=== PATIENT | female | born 1980 | race Caucasian/White ===

== ENCOUNTER 2019-04-20 22:00 | Emergency (ER) | payer SELFPAY ==
[2019-04-20] MEDS ORDERED: ONDANSETRON INJ 4 MG/2 ML VIAL IV ONE (22:14)
[2019-04-20] MEDS ORDERED: MORPHINE SULFATE INJ 10 MG/ML VIAL IV ONE ×2 (22:14→23:56)
[2019-04-20] MEDS ORDERED: SODIUM CHLORIDE 0.9% 1000ML 250 ML IVS ONE (22:39)
--- NOTE | 2019-04-20 23:41 | RAD ---
EXAM: XR Chest, 1 View CLINICAL HISTORY: The patient is 38 years old and is Female; chest pain TECHNIQUE: Frontal view of the chest. COMPARISON: No relevant prior studies available. FINDINGS: LUNGS: Unremarkable. No consolidation. PLEURAL SPACE: Unremarkable. No pneumothorax. HEART: Unremarkable. No cardiomegaly. MEDIASTINUM: Unremarkable. BONES/JOINTS: Unremarkable. IMPRESSION: No acute cardiopulmonary process. Electronically signed by: Emily Pinedo MD 04/20/2019 11:39 PM CDT
--- NOTE | 2019-04-20 23:46 | CT ---
EXAM: CT Angiography Chest With Intravenous Contrast CLINICAL HISTORY: The patient is 38 years old and is Female; chest pain TECHNIQUE: Axial computed tomographic angiography images of the chest with intravenous contrast using pulmonary embolism protocol. Sagittal and coronal reformatted images were created and reviewed. This CT exam was performed using one or more of the following dose reduction techniques: automated exposure control, adjustment of the mA and/or kV according to patient size, and/or use of iterative reconstruction technique. MIP reconstructed images were created and reviewed. COMPARISON: No relevant prior studies available. FINDINGS: ARTIFACTS: The exam is suboptimal secondary to motion artifact. PULMONARY ARTERIES: There are no obvious filling defects identified within the pulmonary arteries to suggest pulmonary embolism. AORTA: No acute findings. No thoracic aortic aneurysm. LUNGS: Minimal atelectasis within the lingula is present. The lungs are otherwise clear. A 1.1 cm nodule within the lingula is present. PLEURAL SPACE: Unremarkable. No significant effusion. No pneumothorax. HEART: Unremarkable. No cardiomegaly. No significant pericardial effusion. No evidence of RV dysfunction. BONES/JOINTS: No acute fracture. No dislocation. SOFT TISSUES: Partial visualization of a low attenuating collection within the left breast is noted measuring approximately 2.8 x 1.9 cm. The Hounsfield units measures approximately 16 suggesting fluid. LYMPH NODES: Unremarkable. No enlarged lymph nodes. IMPRESSION: 1. No evidence of pulmonary embolism. 2. Lingular pulmonary nodule. Consider a non-contrast Chest CT at 3 months, a PET/CT, or tissue sampling. These guidelines do not apply to immunocompromised patients and patients with cancer. Follow up in patients with significant comorbidities as clinically warranted. For lung cancer screening, adhere to Lung-RADS guidelines. Reference: Radiology. 2017; 284(1):228-43. 3. Partially visualized low attenuating collection within the soft tissues of the left breast. Hounsfield units suggest this is fluid. However, recommend nonemergent breast ultrasound. THIS REPORT CONTAINS FINDINGS THAT MAY BE CRITICAL TO PATIENT CARE: The findings were verbally discussed via telephone conference with Dr. DESIREE ARNDT by Dr. Yony Pinedo on 04/20/2019 11:45 PM CDT .The results were acknowledged and understood. Electronically signed by: Emily Pinedo MD 04/20/2019 11:45 PM CDT
--- NOTE | 2019-04-20 23:54 | ED.PDOC ---
History of Present Illness - General Chief Complaint: Chest Pain/OR Stated Complaint: left chest wall pain Time Seen by Provider: 04/20/19 22:08 Source: patient, Vital Signs reviewed Exam Limitations: no limitations - History of Present Illness Initial Comments: 38 yo healthy female c/o 2 days of localized left chest pain she describes as being "right behind" her left breast. No previous episodes. Described as sharp. No trauma or recent illnesses. No aggravating or alleviating factors. No other symptoms. No h/o DVT, PE, CAD or palpitations. Timing/Duration: days Severity/Quality: severe Location: other Chest Pain Radiation: no radiation Activities at Onset: none Prior Chest Pain/Cardiac Workup: no prior chest pain Improving Factors: nothing Worsening Factors: nothing Nitro Today/Relief: no nitro taken today Aspirin Treatment Today: no aspirin today Associated Symptoms: denies symptoms Allergies/Adverse Reactions: Allergies NO KNOWN ALLERGY Allergy (Verified 04/20/19 22:07) Home Medications: Ambulatory Orders Cyclobenzaprine HCl [Flexeril] 10 mg PO TID PRN #30 tab 04/21/19 Review of Systems - Review of Systems Constitutional: States: no symptoms reported EENTM: States: no symptoms reported Respiratory: States: see HPI Cardiology: States: see HPI Gastrointestinal/Abdominal: States: no symptoms reported Genitourinary: States: no symptoms reported Musculoskeletal: States: no symptoms reported Skin: States: no symptoms reported Neurological: States: no symptoms reported Hematologic/Lymphatic: States: no symptoms reported Past Medical History (General) - Patient Medical History Hx Seizures: No Hx Stroke: No Hx Dementia: No Hx Asthma: No Hx of COPD: No Hx Cardiac Disorders: No Hx Congestive Heart Failure: No Hx Pacemaker: No Hx Hypertension: No Hx Thyroid Disease: No Hx Diabetes: No Hx Gastroesophageal Reflux: No Hx Renal Disease: No Hx Cancer: No Hx of HIV: No Hx Hepatitis C: No Hx MRSA: No Hx Other - free text: Preemie. Chest tubes as an infant according to mom. Surgical History: other - Vaccination History Hx Tetanus, Diphtheria Vaccination: No Hx Influenza Vaccination: No Hx Pneumococcal Vaccination: No - Social History Hx Tobacco Use: No Hx Alcohol Use: No - Female History Patient is a Female of Child Bearing Age (10 -59 yrs old): Yes Patient : No Family Medical History - Family History Mother Living Status: Still Living Physical Exam - Physical Exam General Appearance: Alert, Anxious, Other - uncomfortable Eyes, Ears, Nose, Throat Exam: normal ENT inspection Neck: full range of motion, supple Respiratory: chest non-tender, lungs clear, normal breath sounds, no respiratory distress, no accessory muscle use Cardiovascular/Chest: regular rate, rhythm, no edema, no gallop, no JVD, no murmur, other - pain posterior to the left breast worsened with left shoulder ROM but not palpation (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 Pain is returning but not as severe as originally. 04/21/19 05:55 HEART score = 1. I do not feel she is having an ACS & her presentation is atypical for ACS. I feel it is more likely chest wall pain & will start treatment with that in mind. Still, we discussed other causes & specifically her need for more imaging based on ziyad's CT results. She sees Dr. Powell in [place]. - Results/Orders Results/Orders: WBC 11 Hgb 15 D-dimer 0.50 Tr < 0.02 - EKG/XRAY/CT EKG: Sinus, Tachy - ST @ 113; nml axis, intervals, QRS, ST segments & T waves XRAY: chest - no acute process CT: lingular lung nodule; probable left breast cyst; no PE CT Ordered: Yes - discussed with radiologist Departure - Departure Clinical Impression: Lung nodule Chest pain Qualifiers: Chest pain type: unspecified Qualified Code(s): R07.9 - Chest pain, unspecified Breast cyst Qualifiers: Laterality: left Qualified Code(s): N60.02 - Solitary cyst of left breast Time of Disposition: 23:55 Disposition: Discharge to Home or Self Care Condition: Good Departure Forms: ED Discharge - Pt. Copy, Patient Portal Self Enrollment Instructions: DI for Chest Pain, Pulmonary Nodule Referrals: UNKNOWN,PHYSICIAN [Primary Care Provider] - 1-2 Weeks Prescriptions: Cyclobenzaprine HCl [Flexeril] 10 mg PO TID PRN #30 tab PRN Reason: Muscle Spasms Home Medications: Ambulatory Orders Cyclobenzaprine HCl [Flexeril] 10 mg PO TID PRN #30 tab 04/21/19 Comments: Follow up with Dr. Powell this week for a re-examination & to discuss further evaluation of your lung nodule & breast cyst. The radiologist recommends a repeat CT of your chest in 3 months.
[2019-04-20] MEDS ORDERED: CYCLOBENZAPRINE HCL 10 MG TAB PO ONE (23:56)
[2019-04-20] MEDS ORDERED: traMADol HCL 50 MG (ER DISP) # 6 TABS PO ONE (23:56)
[2019-04-21 00:27] VITALS: BP 134/90; TEMP 99; O2SAT 96
== END 2019-04-21 00:15 | disposition home or self-care (01) ==
LOC: ER 22:00
DX: R07.1 Chest pain on breathing (principal); N60.02 Solitary cyst of left breast; R91.1 Solitary pulmonary nodule; R00.0 Tachycardia, unspecified
CPT/HCPCS: 36415; 71045; 71275; 80048; 84484; 84703; 85025; 85379; 93005; J2270; J2405; J7030

== ENCOUNTER → 2019-05-14 | Outpatient (CLI) | payer OTHER ==
--- NOTE | 2019-05-14 17:22 | US ---
EXAM DESCRIPTION: 3D Diagnostic, Bilateral (accession [id number]), digital mammography. Breast,Left (accession [id number]): Ultrasound CLINICAL HISTORY: 38 yearsFemaleLUMP lump in the lateral mid left breast which is tender. No personal history of breast cancer. Remote family history of breast cancer. Childbirth. Premenopausal. No HRT. Lifetime risk of developing breast cancer (Tyrer-Cuzick model)(%): 7.5. COMPARISON: None. TECHNIQUE: Bilateral LM, MLO, and CC projection full-field images, digital mammographic tomosynthesis technique. Bilateral 2-D digital full-field images. LM, MLO, and CC projections. CAD not available. . Transcutaneous scanning of the left breast utilizing hathaway-scale and Doppler modes. Scanning performed by the slate handler and Dr. Carver. FINDINGS: The breast parenchymal density pattern is: Heterogeneously dense breast tissue, which may obscure small masses. No skin thickening or nipple retraction mostly circumscribed oval mass measuring 4.4 x 2.2 cm in the sagittal plane and 2.7 cm in the transverse plane. Denser than the surrounding fibroglandular tissues. No associated microcalcifications. Approximately 5 cm from the nipple at the 3:30 position in the anterior third. Small solitary microcalcifications. No new focal, stellate mass or density, focal asymmetry , and no suspicious microcalcifications right breast. Ultrasound: Scanning of the palpable mass in the lateral left breast. Heterogeneous tissues mostly fibroglandular. Relatively homogeneous mostly hypoechoic mass with mostly circumscribed margins at the 3:00 position of the left breast 6 cm from the nipple. Minimal lobulated margins. Wider than tall orientation. Posterior acoustic mild enhancement. Nonvascular. The mass is tender with transducer pressure. No distinct cyst or large calcifications. IMPRESSION: 1. BI-RADS Category 4: SUSPICIOUS. Sub-category 4A - Low Suspicion For Malignancy. 2. Surgical consultation and tissue diagnosis is recommended if there are no clinical contraindications. The FINDINGS and FOLLOW-UP plan were reviewed in person with the patient following the examination. Written communication explaining the IMPRESSION and FOLLOW-UP will be mailed to the patient and referring care provider. Electronically signed by: Reymundo Carver MD 05/14/2019 5:20 PM CDT
== END ==
LOC: MAMMO 10:45
PROVIDERS: ATTEND Family Medicine
DX: N64.4 Mastodynia (principal)
CPT/HCPCS: 76641; 77066; G0279

== ENCOUNTER → 2019-05-27 | Outpatient (CLI) | payer OTHER ==
--- NOTE | 2019-05-27 10:14 | OP ---
DATE OF PROCEDURE: 05/27/19 PREOPERATIVE DIAGNOSIS: 1. Tender left breast mass. POSTOPERATIVE DIAGNOSIS: 1. Tender left breast mass. PROCEDURE: 1. Sonographically guided biopsy of left breast mass. SURGEON: Kulwant Simmons MD. REGIONAL ENGAGEMENT CONSULTANT: None. ANESTHESIA: Local infiltration of 1% lidocaine. INDICATION: The patient is a 38-year-old female who developed a tender area in her left breast. She was found to have a solid, generally smooth, large mass in her left breast. She was brought to the Ultrasound Suite today for sonographically guided needle core biopsy. FINDINGS: Several solid cores were taken. Pathology is pending. PROCEDURE: The patient was brought to the Ultrasound Suite and placed in the supine position with a pillow under her left shoulder. The left breast was inspected with the ultrasound device and the lesion was identified. The breast lateral to the ultrasound probe was prepped with Betadine and draped. Local infiltration of anesthesia was obtained and a needle was introduced into the breast mass. No fluid was aspirated, so at this point, the needle core biopsy device was introduced. Multiple passes were taken which were identified to be within the mass by ultrasound. Hemostasis was obtained with pressure and a single suture of 4-0 Prolene. Pressure dressing was applied. The patient tolerated the procedure well and was discharged home. CONDITION ON DISCHARGE: Stable. ESTIMATED BLOOD LOSS: Less than 5 mL. #[id number] MTDD
--- NOTE | 2019-05-28 10:24 | US ---
EXAM DESCRIPTION: Biopsy/Needle Guidance: Ultrasound. CLINICAL HISTORY: 38 yearsFemaleLEFT BREAST MASS COMPARISON: Diagnostic ultrasound of the left breast on 05/14/2019. TECHNIQUE: Procedure was performed by Dr. Lopez. Repeat ultrasound localized the lesion at the 3:00 position of the left breast. Sterile preparation. Sterile ultrasound guidance. FINDINGS: Images taken prior to the procedure show the large hypoechoic mass with circumscribed and lobulated margins, wider than tall orientation and minimal posterior acoustic enhancement. Images during the procedure show the core biopsy needle within the mass. IMPRESSION: Successful ultrasound-guided core needle biopsy left breast mass. Please refer to surgeon's procedure note. Pathology examination at remote facility, results pending. Electronically signed by: Reymundo Carver MD 05/28/2019 10:22 AM CDT
== END ==
LOC: US 08:01
PROVIDERS: ATTEND Family Medicine
DX: N60.22 Fibroadenosis of left breast (principal)